=== PATIENT | male | born 1945 | race African-American/Black ===

== ENCOUNTER 2019-09-13 13:59 | Inpatient (IN) | payer MEDICAID, OTHER ==
[~2019-09-13] VITALS: Ht 165.1 cm; Wt 68.5 kg
[~2019-09-13 13:59] MED LIST: ASPI-1497 PO; ATOR-2 PO; BACL-141 PO; CAPS60CR3 TP; EPLE25TA10 MT; FLUT1DIS3 INH; GABA-531 PO; IPRA3AMP31 IH; LIDO1.8C IJ; LISI40TA4 PO; METO200T48 PO; MIRT30TA PO; NITR0.4T49 SL; OXYC-662 GT; PRED5POW11 PO; SENN-170 PO; SENN8.6T60 PO; TIOT4MIS5 IH; TOPUD PO; TRAM50TA3 PO
[2019-09-13] MEDS: ALBUTEROL (0.083%) 2.5MG/3ML NEB HHN STA ×2 (14:10→17:10)
[2019-09-13] MEDS ORDERED: METHYLPREDNISOLONE SOD SUCC 125 MG/2 ML VIAL IV STA (14:10)
[2019-09-13] MEDS: IPRATROPIUM BROMIDE (0.02%) 0.5MG/2.5ML NEB HHN STA ×2 (14:10→17:10)
[2019-09-13 14:56] LABS: HEMATOCRIT. 49.5 % (42.0-52.0); HEMOGLOBIN. 16.8 g/dL (14.0-18.0); MEAN CORPUSCULAR HEMOGLOBIN 31.8 pg (28.0-32.0); MEAN CORPUSCULAR VOLUME 93.6 fL (80.0-94.0); PLATELET 196 x1000/uL (130-400); RED CELL DISTRIBUTION WIDTH 14.8 % (11.6-14.6)
[2019-09-13 15:18] LABS: PLATELET ESTIMATE NORMAL
[2019-09-13 16:31] LABS: CHLORIDE 107 mEq/L (98-107)
[2019-09-13 16:37] LABS: ETHANOL BLOOD < 10 mg/dL
[2019-09-13] MEDS ORDERED: MAGNESIUM/ALUMINUM HYDROXIDE/SIMETHICONE 30ML UDC PO PRN (17:00)
[2019-09-13] MEDS ORDERED: GUAIFENESIN 200MG/10ML SUGAR FREE UDC PO PRN (17:00)
[2019-09-13] MEDS ORDERED: NITROGLYCERIN 0.4MG TABLET SL SL SCH (17:00)
[2019-09-13] MEDS ORDERED: IPRATROPIUM/ALBUTEROL 0.5-3(2.5)MG/3ML NEB HHN PRN (17:00)
[2019-09-13] MEDS ORDERED: CLONIDINE 0.1MG TABLET PO PRN (17:00)
[2019-09-13] MEDS ORDERED: LISINOPRIL 40MG TABLET PO SCH ×2 (17:00→18:00)
[2019-09-13] MEDS ORDERED: ASPIRIN 81MG EC TABLET PO SCH (17:30)
[2019-09-13] MEDS ORDERED: LEVOFLOXACIN 500MG PREMIX 100 ML IV SCH (18:00)
[2019-09-13] MEDS ORDERED: NITROGLYCERIN 0.4MG TABLET SL SL PRN (18:00)
[2019-09-13] MEDS ORDERED: GABAPENTIN 300MG CAPSULE PO SCH (18:00)
[2019-09-13] MEDS ORDERED: BACLOFEN 10MG TABLET PO SCH (18:00)
[2019-09-13] MEDS: ACETAMINOPHEN 325MG TABLET PO PRN (21:14)
[2019-09-13] MEDS: TRAMADOL 50MG TABLET PO SCH (22:09)
[2019-09-14] VITALS (7 sets, daily range): BP systolic 102–170; BP diastolic 77–92
[2019-09-14] MEDS ORDERED: MIRTAZAPINE 15MG TABLET PO SCH (01:00)
[2019-09-14] MEDS ORDERED: MIRTAZAPINE 30MG TABLET PO SCH (01:00)
[2019-09-14] MEDS: GABAPENTIN 300MG CAPSULE PO SCH ×4 (01:34→17:06)
[2019-09-14] MEDS: ACETAMINOPHEN 325MG TABLET PO PRN (01:35)
[2019-09-14] MEDS: BACLOFEN 10MG TABLET PO SCH ×3 (01:35→17:06)
[2019-09-14] MEDS ORDERED: DOCU-150 PO (02:15)
[2019-09-14] MEDS ORDERED: ISOS30TA6 PO (02:15)
[2019-09-14] MEDS ORDERED: HYDR12.54 PO (02:15)
[2019-09-14 05:44] LABS: BASOPHILS % 0.2 % (0.0-2.0); HEMOGLOBIN. 15.4 g/dL (14.0-18.0); LYMPHOCYTES % 7.1 % (20.0-50.0); MEAN CORPUSCULAR HEMOGLOBIN 31.7 pg (28.0-32.0); MEAN CORPUSCULAR VOLUME 92.4 fL (80.0-94.0); MEAN PLATELET VOLUME 8.8 fl (7.4-10.4); MONOCYTES % 4.2 % (2.0-8.0); NEUTROPHILS % 88.5 % (40.0-76.0); PLATELET 189 x1000/uL (130-400); RED BLOOD CELL COUNT 4.87 mill/uL (4.7-6.1)
[2019-09-14 06:23] LABS: CHLORIDE 109 mEq/L (98-107)
[2019-09-14] MEDS: SODIUM CHLORIDE 0.9% INJ 3ML FLUSH IVF SCH ×2 (06:40→13:44)
[2019-09-14] MEDS: HYDROCORTISONE SOD SUCCINATE 100 MG/2 ML VIAL IV SCH ×2 (06:40→13:43)
[2019-09-14] MEDS ORDERED: METOPROLOL TARTRATE 100MG TABLET PO SCH (09:00)
[2019-09-14] MEDS ORDERED: ASPIRIN 81MG EC TABLET PO SCH (09:00)
[2019-09-14] MEDS ORDERED: ENOXAPARIN 40MG/0.4ML SYR SUBCUT SCH (09:00)
[2019-09-14] MEDS ORDERED: SENNOSIDES 8.6MG TABLET PO SCH ×2 (09:00)
[2019-09-14] MEDS ORDERED: LISINOPRIL 40MG TABLET PO SCH (09:00)
[2019-09-14] MEDS: TRAMADOL 50MG TABLET PO SCH ×3 (09:21→17:06)
[2019-09-14 10:26] LABS: BG BASE EXCESS -3.5 mmol/L (-2.0-2.0); BG CARBOXYHEMOGLOBIN 0.2 % (0.5-1.5); BG DEOXYHEMOGLOBIN 4.2 % (0.0-5.0); BG FRACTION INSPIRED OXYGEN 21; BG HCO3 ACT 20.4 mmol/L (22.0-26.0); BG METHEMOGLOBIN 0.1 % (0.0-1.5); BG OXYGEN SATURATION 95.8 % (92.0-98.5); BG OXYHEMOGLOBIN 95.5 % (94.0-97.0); BG PCO2 33.8 mmHg (35.0-45.0); BG PH 7.398 (7.350-7.450); BG SAMPLE SITE RIGHT BRACHIAL; BG TOTAL HEMOGLOBIN 15.6 g/dL (12.0-18.0); BG VENT MODE ROOM AIR
[2019-09-14] MEDS ORDERED: LEVOFLOXACIN 500MG PREMIX 100 ML IV SCH (18:30)
[2019-09-14] MEDS ORDERED: ATORVASTATIN CALCIUM 40MG TABLET PO SCH (21:00)
== END 2019-09-14 18:40 | disposition home or self-care (01) | DRG 191 ==
LOC: ER 13:59 → EDBEDREQTM 16:40 → EDBEDREQ 16:40 → EDBEDREQTM 16:41 → EDBEDREQ 16:41 → ENRESERV 22:50 → 5WST 09-14
PROVIDERS: ADMIT Ophthalmology; ATTEND Ophthalmology
DX: J44.1 Chronic obstructive pulmonary disease with (acute) exacerbation (principal); F11.20 Opioid dependence, uncomplicated; I10 Essential (primary) hypertension; F41.9 Anxiety disorder, unspecified; I25.10 Atherosclerotic heart disease of native coronary artery without angina pectoris; Z79.1 Long term (current) use of non-steroidal anti-inflammatories (NSAID); Z79.899 Other long term (current) drug therapy; Z79.82 Long term (current) use of aspirin; Z86.73 Personal history of transient ischemic attack (TIA), and cerebral infarction without residual deficits; Z87.891 Personal history of nicotine dependence
CPT/HCPCS: 36415; 36600; 71045; 80048; 80053; 80320; 82375; 82805; 83880; 84443; 84484; 85025; 93005; 94640; 99285; J1650; J1720; J1956; J2930; G0480